=== PATIENT | female | born 1965 | race Caucasian/White ===

== ENCOUNTER 2018-02-07 17:31 | Emergency (ER) | payer OTHER ==
[~2018-02-07] VITALS: Ht 170.2 cm; Wt 72.6 kg
[~2018-02-07 17:31] MED LIST: ACYC800T PO; OLAN2.5T11 PO
[2018-02-07] MEDS ORDERED: IBUPROFEN 800 MG TABLET. PO ONE (18:30)
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
[2018-02-07 19:05] VITALS: BP 143/76
== END 2018-02-07 19:04 | disposition home or self-care (01) ==
LOC: ER 17:31
DX: S09.90XA Unspecified injury of head, initial encounter (principal); S40.012A Contusion of left shoulder, initial encounter; S40.011A Contusion of right shoulder, initial encounter; F32.9 Major depressive disorder, single episode, unspecified; F12.10 Cannabis abuse, uncomplicated; Z88.1 Allergy status to other antibiotic agents; Z88.8 Allergy status to other drugs, medicaments and biological substances; V69.9XXA Occupant (driver) (passenger) of heavy transport vehicle injured in unspecified traffic accident, initial encounter; Y93.89 Activity, other specified; Y99.8 Other external cause status; Y92.488 Other paved roadways as the place of occurrence of the external cause
CPT/HCPCS: 70450; 99284-25

== ENCOUNTER 2019-11-22 19:20 | Emergency (ER) | payer OTHER ==
[~2019-11-22] VITALS: Ht 170.2 cm; Wt 74.0 kg
--- NOTE | 2019-11-22 19:37 | PHYS DOC ---
Past History Past Medical History: Depression, Other Past Surgical History: , Other Smoking: Cigarettes Alcohol Use: Occasionally Drug Use: Marijuana Adult General Chief Complaint Chief Complaint: HIP PAIN... " I was picking up a 50# sack of dog food for my [place] [employer] dogs.. and got this pain in my Lt. hip.. same hip I got zoster.. in. HPI HPI Patient is a 53 year old female who presents with severe on set of sciatic like pain Lt hip after lifting 50# sack of dog food. Pt has pain along Lt Sciatic nerve. Exacerbation of pain with state leg lift. Patient denies any problems with defecation or urination. Does have some spasms along left lower lumbar spinal area. No history immunosuppression. No history of fever or chills. No history of IV drug use. No history of cancer. No problems defecation or uri nation. Review of Systems Review of Systems Constitutional: Denies fever or chills [] Eyes: Denies change in visual acuity, redness, or eye pain [] HENT: Denies nasal congestion or sore throat [] Respiratory: Denies cough or shortness of breath [] Cardiovascular: No additional information not addressed in HPI [] GI: Denies abdominal pain, nausea, vomiting, bloody stools or diarrhea [] : Denies dysuria or hematuria [] Musculoskeletal: Complaints of lower back pain and left hip pain Integument: Denies rash or skin lesions [] Neurologic: Denies headache, focal weakness or sensory changes [] Endocrine: Denies polyuria or polydipsia [] All other systems were reviewed and found to be within normal limits, except as documented in this note. Family History Family History Noncontributory Current Medications Current Medications See nursing for home meds Allergies Allergies Allergies Coded Allergies Type Severity Reaction Last Updated Verified amoxicillin trihydrate Allergy Intermediate Rash 08/09/16 Yes potassium clavulanate Allergy Intermediate Rash 08/09/16 Yes Physical Exam Physical Exam Constitutional: Moderate acute distress, non-toxic appearance. [] HENT: Normocephalic, atraumatic, bilateral external ears normal, oropharynx moist, no oral exudates, nose normal. [] Eyes: PERRLA, EOMI, conjunctiva normal, no discharge. [] Neck: Normal range of motion, no tenderness, supple, no stridor. [] Cardiovascular:Heart rate regular rhythm, no murmur [] Lungs & Thorax: Bilateral breath sounds clear to auscultation [] Abdomen: Bowel sounds normal, soft, no tenderness, no masses, no pulsatile masses. [] No saddle loss reported. Old surgery scars Skin: Warm, dry, no erythema, no rash. [] Back: Lower lumbar muscle tenderness, no CVA tenderness. [] And along left sciatic nerve Extremities: No tenderness, no cyanosis, no clubbing, ROM intact, no edema. [] Arthritic changes. Neurologic: Alert and oriented X 3, normal motor function, normal sensory function, no focal deficits noted. []DTR +2 at patella. Psychologic: Affect anxious, judgement normal, mood normal. [] EKG EKG [] Radiology/Procedures Radiology/Procedures [][address] [address] IMAGING REPORT Signed PATIENT: RADHA WASSERMAN ACCOUNT: [id number] : 1965 LOCATION: ER AGE: 53 SEX: F EXAM STATUS: PRE ER ORD. PHYSICIAN: BARTOLOME SOTO MD REASON: pain Lt hip, LBP, LIFTING INJURY, TODAY PROCEDURE: CT LUMBAR SPINE WO CONTRAST CT LUMBAR SPINE WO CONTRAST, CT PELVIS WO CONTRAST History: Left hip pain. Low back pain. Lifting injury. Technique: Noncontrast CT was performed of the lumbar spine and pelvis. Multiplanar reconstructions were performed. Exposure: One or more of the following individualized dose reduction techniques were utilized for this examination: 1. Automated exposure control 2. Adjustment of the mA and/or kV according to patient size 3. Use of iterative reconstruction technique. Comparison: None Findings: CT lumbar spine: Normal vertebral body height and alignment. No fracture. L1-L2: Small posterior disc bulge. No canal or neuroforaminal narrowing. L2-L3: Minimal posterior disc bulge. No canal or neuroforaminal narrowing. L3-L4: No canal or neuroforaminal narrowing. Minimal left foraminal disc bulge. Mild facet arthropathy. L4-L5: Broad-based disc bulge eccentric to the left. Mild left subarticular recess narrowing. Superimposed left foraminal disc extrusion. Abutment of the exiting left L4 nerve root. Mild to moderate left neuroforaminal narrowing. Mild facet arthropathy. No right neuroforaminal narrowing. No canal narrowing. L5-S1: Severe disc height loss. Vacuum disc phenomenon. Minimal posterior disc bulge. No canal narrowing. Moderate facet arthropathy. Mild to moderate left and mild right neuroforaminal narrowing. CT pelvis: Normal alignment of the hips. No fracture. Intrapelvic contents are unremarkable. Mild tendinous structures appear intact. Impression: 1. Left L4-L5 foraminal disc extrusion abutting the left exiting L4 nerve root. Correlate for radiculopathy. 2. Additional multilevel lumbar spondylosis. Electronically signed by: Wyatt Jarrett DO (11/22/2019 8:48 PM) [facility] DICTATED AND SIGNED BY: WYATT JARRETT DO DATE: 11/22/192047 CC: BARTOLOME SOTO MD; AXEL PISANO ~ Course & Med Decision Making Course & Med Decision Making Pertinent Labs and Imaging studies reviewed. (See chart for details). Patient avoid lifting. Patient follow-up primary care. Patient use ice packs as needed. Follow-up with neurology/neurosurgery. Consider follow-up pain center. For marked pain may take Vicoprofen up 4 times a day. Give a trial of Lidocaine patches. Impression- 1. Sciatica 2. Degenerative joint / foramen stenosis [] Dragon Disclaimer Dragon Disclaimer This electronic medical record was generated, in whole or in part, using a voice recognition dictation system. Departure Departure: Disposition: HOME/RESIDENCE PRIOR TO ADM Condition: STABLE Referrals: AXEL PISANO (PCP) Scripts Lidocaine/Menthol (LIDOPATCH) 1 Each Adh..patch 1 JUANITO TP BID for sciatica pain for 30 Days, #60 EACH 0 Refills Prov: BARTOLOME SOTO MD 11/22/19 Hydrocodone/Ibuprofen (HYDROCODONE-IBUPROFEN 7.5-200 ) 1 Each Tablet 1 TAB PO PRN Q6HRS PRN for PAIN, #30 TAB 0 Refills Prov: BARTOLOME SOTO MD 11/22/19 Dragon Disclaimer This chart was dictated in whole or in part using Voice Recognition software in a busy, high-work load, and often noisy Emergency Department environment. It may contain unintended and wholly unrecognized errors or omissions. BARTOLOME SOTO MD Nov 22, 2019 19:37
[2019-11-22] MEDS ORDERED: methylPREDNISolone ACETATE 40 MG/ML VIAL. IM ONE (20:00)
[2019-11-22] MEDS ORDERED: ORPHENADRINE CITRATE 60 MG/2 ML VIAL. IM ONE (20:00)
[2019-11-22] MEDS ORDERED: KETOROLAC 60 MG/2 ML VIAL. IM ONE (20:00)
[2019-11-22] MEDS ORDERED: MORPHINE SULFATE 10 MG/ML SYRINGE. SQ ONE (20:00)
--- NOTE | 2019-11-22 20:51 | RAD ---
CT LUMBAR SPINE WO CONTRAST, CT PELVIS WO CONTRAST History: Left hip pain. Low back pain. Lifting injury. Technique: Noncontrast CT was performed of the lumbar spine and pelvis. Multiplanar reconstructions were performed. Exposure: One or more of the following individualized dose reduction techniques were utilized for this examination: 1. Automated exposure control 2. Adjustment of the mA and/or kV according to patient size 3. Use of iterative reconstruction technique. Comparison: None Findings: CT lumbar spine: Normal vertebral body height and alignment. No fracture. L1-L2: Small posterior disc bulge. No canal or neuroforaminal narrowing. L2-L3: Minimal posterior disc bulge. No canal or neuroforaminal narrowing. L3-L4: No canal or neuroforaminal narrowing. Minimal left foraminal disc bulge. Mild facet arthropathy. L4-L5: Broad-based disc bulge eccentric to the left. Mild left subarticular recess narrowing. Superimposed left foraminal disc extrusion. Abutment of the exiting left L4 nerve root. Mild to moderate left neuroforaminal narrowing. Mild facet arthropathy. No right neuroforaminal narrowing. No canal narrowing. L5-S1: Severe disc height loss. Vacuum disc phenomenon. Minimal posterior disc bulge. No canal narrowing. Moderate facet arthropathy. Mild to moderate left and mild right neuroforaminal narrowing. CT pelvis: Normal alignment of the hips. No fracture. Intrapelvic contents are unremarkable. Mild tendinous structures appear intact. Impression: 1. Left L4-L5 foraminal disc extrusion abutting the left exiting L4 nerve root. Correlate for radiculopathy. 2. Additional multilevel lumbar spondylosis. Electronically signed by: Wyatt Jarrett DO (11/22/2019 8:48 PM) [facility]
[2019-11-22] MEDS ORDERED: HYDR-1179 PO (21:15)
[2019-11-22] MEDS ORDERED: LIDO1ADH TP (21:15)
[2019-11-22 21:25] VITALS: BP 130/98
== END 2019-11-22 21:25 | disposition home or self-care (01) ==
LOC: ER 19:20
DX: M54.42 Lumbago with sciatica, left side (principal); M25.552 Pain in left hip; F32.9 Major depressive disorder, single episode, unspecified; F17.210 Nicotine dependence, cigarettes, uncomplicated; Z88.1 Allergy status to other antibiotic agents; Z88.8 Allergy status to other drugs, medicaments and biological substances
CPT/HCPCS: 72131; 72192; 81025; 96372; 99284; J1030; J1885; J2270; J2360

== ENCOUNTER 2020-01-23 07:26 | Emergency (ER) | payer BC ==
[~2020-01-23 07:26] MED LIST changes: +HYDR-1179 PO; +LIDO1ADH TP
[2020-01-23] MEDS ORDERED: KETOROLAC 60 MG/2 ML VIAL. IM ONE ×2 (08:06→08:12)
--- NOTE | 2020-01-23 16:14 | RAD ---
EXAM: Lumbar spine, 2 views. HISTORY: Pain. COMPARISON: None. FINDINGS: 2 views of the lumbar spine are obtained. There is no listhesis. The vertebral bodies are normal in height. There is degenerative endplate remodeling with disc space narrowing and facet arthropathy at L5-S1. There are few small thoracic and lumbar endplate Schmorl's nodes. IMPRESSION: 1. No acute osseous finding. 2. Degenerative change primarily at L5-S1. Electronically signed by: Vivian Parks MD (01/23/2020 4:11 PM) [facility] [place] [facility] [place]
== END 2020-01-23 09:51 | disposition home or self-care (01) ==
LOC: ER 07:26
DX: S39.012A Strain of muscle, fascia and tendon of lower back, initial encounter (principal); W18.39XA Other fall on same level, initial encounter; Y93.89 Activity, other specified; Y92.89 Other specified places as the place of occurrence of the external cause; Y99.8 Other external cause status
CPT/HCPCS: 72100; 96372; 99283; J1885

== ENCOUNTER → 2020-02-01 | Outpatient (CLI) | payer BC ==
--- NOTE | 2020-02-01 11:52 | RAD ---
Examination: THORACIC SPINE 3V History: Back pain Comparison/Correlation: None Findings: 3 images of the thoracic spine were obtained. Mild dextroconvexity of the upper thoracic spine is present. Alignment is normal. Osteopenia is present. Vertebral body heights are adequate. No fracture or bone destruction. This spaces are adequate. Impression: No acute process. No significant degenerative change for the patient's age. Electronically signed by: Joey Fairchild MD (02/01/2020 11:49 AM) [id number]
== END | disposition home or self-care (01) ==
LOC: DXRAD 10:59
PROVIDERS: ATTEND Physician Assistant Medical
DX: M85.88 Other specified disorders of bone density and structure, other site (principal); M62.830 Muscle spasm of back
CPT/HCPCS: 72072

== ENCOUNTER → 2021-12-14 | Outpatient (CLI) | payer BC, OTHER ==
[~2021-12-14] MED LIST changes: -ACYC800T PO; +ACYC800T88 PO
--- NOTE | 2021-12-14 16:57 | RAD ---
US DPLX VENOUS EXTREMITY LOWER RT 12/14/2021 4:21 PM Clinical Information: Right lower extremity pain. Comparison: None. Technique: Multiple grayscale, color Doppler, and spectral Doppler sonographic images of the lower ex tremity venous structures were obtained. Findings: The right common femoral, femoral, and popliteal veins exhibit normal compression, respiratory phasic ity, and augmentation. No intraluminal thrombi are identified. Color Doppler flow is demonstrated in the right posterior tibial veins. Greater saphenous veins are patent at the saphenofemoral junction. Impression: 1. No evidence of deep venous thrombosis. Electronically signed by: Lori Whyte MD (12/14/2021 4:54 PM) [id number]
== END ==
LOC: US 16:10
PROVIDERS: ATTEND Family Medicine
DX: M79.604 Pain in right leg (principal)
CPT/HCPCS: 93971